=== PATIENT | female | born 1945 | race Two or more races ===

== ENCOUNTER → 2022-10-14 | Emergency (ER) | payer OTHER ==
[~2022-10-14] VITALS: Ht 149.9 cm; Wt 61.2 kg
[~2022-10-14] MED LIST: GLIMEPIRIDE2 M1 PO; LISINOPRIL10 MG PO; METFORMIN HCL500 M4 PO; OMEPRAZOLE20 MG PO; PENTOXIFYLLINE400 MG PO; SIMVASTATIN40 MG PO
== END | disposition home or self-care (01) ==
LOC: ER 10:57
DX: M25.512 Pain in left shoulder (principal)

== ENCOUNTER 2024-10-01 10:10 | Outpatient (CLI) | payer OTHER | END 2024-10-01 10:19 | disposition home or self-care (01) | LOC: MRI 10:10 | PROVIDERS: ATTEND Specialist | DX: M17.11 Unilateral primary osteoarthritis, right knee (principal) | CPT/HCPCS: 73721 ==

== ENCOUNTER 2024-10-18 11:15 | Outpatient (CLI) | payer OTHER | END 2024-10-18 11:28 | disposition home or self-care (01) | LOC: TOM 11:15 | PROVIDERS: ATTEND Specialist | DX: M62.830 Muscle spasm of back (principal); M54.50 Low back pain, unspecified; M51.05 Intervertebral disc disorders with myelopathy, thoracolumbar region; M43.05 Spondylolysis, thoracolumbar region ==